=== PATIENT | female | born 1975 | race African-American/Black ===

== ENCOUNTER 2019-09-30 14:14 | Emergency (ER) | payer OTHER ==
[~2019-09-30] VITALS: Ht 157.5 cm; Wt 63.5 kg
[2019-09-30] MEDS ORDERED: HYDROCHLOROTHIA25 M2 PO (14:27)
[2019-09-30] MEDS ORDERED: NIFEDIPINE ER30 M1 PO (14:27)
[2019-09-30] MEDS ORDERED: KLOR-CON 10 ER10 MEQ PO (14:28)
[2019-09-30] MEDS ORDERED: AMOXICILLIN 50500 MG PO (15:12)
[2019-09-30 15:21] VITALS: BP 132/76
== END 2019-09-30 15:21 | disposition home or self-care (01) ==
LOC: M.ERS 14:14
DX: H66.92 Otitis media, unspecified, left ear (principal); I10 Essential (primary) hypertension; Z79.899 Other long term (current) drug therapy

== ENCOUNTER 2019-10-06 10:24 | Emergency (ER) | payer OTHER ==
[~2019-10-06] VITALS: Ht 157.5 cm; Wt 63.0 kg
[~2019-10-06 10:24] MED LIST: AMOXICILLIN 50500 MG PO; HYDROCHLOROTHIA25 M2 PO; KLOR-CON 10 ER10 MEQ PO; NIFEDIPINE ER30 M1 PO
[2019-10-06 12:22] VITALS: BP 113/79
== END 2019-10-06 12:24 | disposition home or self-care (01) ==
LOC: M.ERS 10:24
DX: H92.02 Otalgia, left ear (principal); R42 Dizziness and giddiness; I10 Essential (primary) hypertension